=== PATIENT | female | born 1955 | race Caucasian/White ===

== ENCOUNTER → 2017-09-10 | Outpatient (CLI) | payer OTHER | LOC: FIMAGING 14:28 | PROVIDERS: ATTEND Internal Medicine | DX: Z12.31 Encounter for screening mammogram for malignant neoplasm of breast (principal); Z13.820 Encounter for screening for osteoporosis; M81.0 Age-related osteoporosis without current pathological fracture | CPT/HCPCS: G0202 ==

== ENCOUNTER 2018-07-05 13:48 | Emergency (ER) | payer OTHER ==
--- NOTE | 2018-07-05 14:20 | EDPHY ---
General Time Seen by Provider: 07/05/18 14:02 Narrative: CHIEF COMPLAINT: "I cut my finger" HISTORY OF PRESENT ILLNESS: Patient presents with complaints of laceration to her left index finger. She says she was cutting chives outside in her garden when she accidentally cut her left finger. This was done with a knife. Bleeding was moderate but stopped with pressure. She has no numbness or tingling. No difficulty bending or straightening the finger. She reports tetanus up-to-date less than 5 years ago. No other associated complaints or modifying factors. Right-hand dominant. TIME OF INJURY: 2 hr prior to arrival TETANUS STATUS: Less than 5 years ago MEDICAL/SURGICAL/SOCIAL HISTORY: Uncomplicated REVIEW OF SYSTEMS: Ten systems reviewed and are negative unless otherwise noted in the HPI EXAMINATION General Appearance: Alert, no distress Head: normocephalic, atraumatic Cardiovascular: Symmetric radial pulses. Brisk cap refill the fingers the affected hand. Neurological: A&O, light and 2 point sensory symmetric in the hands. Interossei strength symmetric. Skin: Warm and dry, no rash. 2.5 cm laceration on the left index finger over the middle phalanx, radial side. No underlying tendon exposure. No pulsatile bleeding Extremities: Tenderness over the left index finger laceration. Flexion extension of the finger retain including superficialis and profundus. DIFFERENTIAL DIAGNOSES: Including but not limited to laceration, laceration complication, laceration with tendon injury MDM: 2:05 p.m. Laceration to the left index finger over the radial side without any evidence of tendon injury. She is neuro intact distally. Full flexion extension. Tetanus up-to-date. I have administered a digital block. We will irrigate the wound. I will close this primarily. 2:50 p.m. Laceration has been repaired without difficulty. Neuro intact pre and postprocedure with good flexion extension of the finger including superficialis and profundus flexors. Wound care discussed. Dressing has been applied. We discussed follow up here in 7-10 days for suture removal. We discussed signs symptoms infection. She is discharged home stable condition. PROCEDURE: Laceration repair Consent: Verbal Location: Left index finger Length of repair: 2.5 cm Complexity: Complex Layer involvement: Single Anesthesia: Digital block Irrigation: Extensive Debridement: None Procedure description: Following good anesthesia, the wound was copiously irrigated. Wound bed was explored with a sterile glove, and there is no foreign body noted. Wound borders were approximated well with good hemostasis. Tolerated well without complication. Suture/Staple material: 5-0 Prolene, 4 simple ruptured sutures Wound care: Routine as discussed Suture/Staple removal: 7-10 Days PROCEDURE: Digital Block Indication: Finger laceration Consent: Verbal Location: Left index finger Anesthesia: Lidocaine 1% plain, 0.25% Marcaine plain, 5mL Description: Base of the finger was prepped. The above was infused without difficulty. Tolerated well. Good anesthesia. Complications: None SUPERVISION: This patient was independently evaluated without direct involvement of or examination by the attending physician. ED Precautions: Worsening pain. Erythema, edema, cyanosis, pallor, paresthesia or anesthesia. - History Smoking Status: Never smoked - Objective Vital Signs: Initial Vital Signs Temperature (C) 97.9 F 07/05/18 13:58 Heart Rate 59 L 07/05/18 13:58 Respiratory Rate 18 07/05/18 13:58 Blood Pressure 133/78 H 07/05/18 13:58 O2 Sat (%) 96 07/05/18 13:58 O2 Delivery Mode Room Air Allergies/Adverse Reactions: azithromycin [From Zithromax] Allergy (Verified 07/05/18 13:58) Home Medications: Medication Instructions Recorded Synthroid 06/17/14 Cephalexin [Keflex (*)] 500 mg PO QID #28 cap 07/05/18 Departure - Departure Disposition: Home, Routine, Self-Care Clinical Impression: Finger laceration Qualifiers: Encounter type: initial encounter Finger: index finger Damage to nail status: without damage Foreign body presence: without foreign body Laterality: left Qualified Code(s): S61.211A - Laceration without foreign body of left index finger without damage to nail, initial encounter Condition: Good Instructions: Care For Your Stitches (ED), Laceration (ED) Additional Instructions: 1. Thin layer of bacitracin once daily for the next 2 days 2. Keep the wound covered while showering for the next 3 days 3. Daily wound care as discussed 4. Return here for suture removal in 7 days 5. Return here for signs of infection as discussed including warmth, redness, fever, drainage from the site 6. return here for increasing pain surrounding the laceration 7. Do not submerge the wound in any water, hot tub, swimming pool until sutures removed Referrals: Dario Cobos MD [Primary Care Provider] - As per Instructions Physician,Emergency DeptMD [Medical Doctor] - As per Instructions (Seven-ten days for suture removal) Prescriptions: Cephalexin [Keflex (*)] 500 mg PO QID #28 cap
[2018-07-05] MEDS ORDERED: HYDROGEN PEROXIDE 236 ML BOTTLE TP ONE (14:29)
[2018-07-05 15:17] VITALS: BP 120/62
== END 2018-07-05 15:16 | disposition home or self-care (01) ==
PROC: 0HQGXZZ Repair Left Hand Skin, External Approach (ICD-10-PCS; principal; 2018-07-05)
DX: S61.219A Laceration without foreign body of unspecified finger without damage to nail, initial encounter (principal); Y93.H2 Activity, gardening and landscaping; W26.0XXA Contact with knife, initial encounter; Y92.017 Garden or yard in single-family (private) house as the place of occurrence of the external cause

== ENCOUNTER → 2018-08-26 | Outpatient (CLI) | payer OTHER | LOC: FIMAGING 18:17 | PROVIDERS: ATTEND Internal Medicine | DX: M79.645 Pain in left finger(s) (principal); M79.89 Other specified soft tissue disorders ==

== ENCOUNTER → 2018-10-02 | Outpatient (CLI) | payer OTHER | LOC: FIMAGING 13:08 | PROVIDERS: ATTEND Internal Medicine | DX: M53.82 Other specified dorsopathies, cervical region (principal); M50.323 Other cervical disc degeneration at C6-C7 level ==

== ENCOUNTER → 2018-10-07 | Outpatient (CLI) | payer OTHER | LOC: FIMAGING 13:11 | PROVIDERS: ATTEND Internal Medicine | DX: Z12.31 Encounter for screening mammogram for malignant neoplasm of breast (principal) ==

== ENCOUNTER → 2018-10-24 | Outpatient (CLI) | payer OTHER | LOC: FIMAGING 13:30 | PROVIDERS: ATTEND Internal Medicine | DX: R92.8 Other abnormal and inconclusive findings on diagnostic imaging of breast (principal) ==

== ENCOUNTER → 2019-01-22 | Outpatient (CLI) | payer OTHER | LOC: BMCIMAGING 10:49 | PROVIDERS: ATTEND Nurse Practitioner Family | DX: Z13.820 Encounter for screening for osteoporosis (principal); M81.0 Age-related osteoporosis without current pathological fracture ==